=== PATIENT | male | born 1975 | race Caucasian/White ===

== ENCOUNTER 2020-12-11 10:59 | Inpatient (IN) | payer BC ==
[2020-12-11 12:27] VITALS: BMI 29.9
[2020-12-11] MEDS ORDERED: MAGNESIUM CITRATE 300 ML BOTTLE PO PRN (12:54)
[2020-12-11] MEDS ORDERED: IBUPROFEN 400 MG TABLET (FP) PO PRN (12:54)
[2020-12-11] MEDS ORDERED: BISMUTH SUBSALICYLATE 524 MG/30 ML UD PO PRN (12:54)
[2020-12-11] MEDS ORDERED: NICOTINE POLACRILEX 2 MG GUM BUC PRN (12:54)
[2020-12-11] MEDS ORDERED: ACETAMINOPHEN 325 MG TABLET (FP) PO PRN ×2 (12:54)
[2020-12-11] MEDS ORDERED: ONDANSETRON *ODT* 4 MG TABLET SL PRN (12:54)
[2020-12-11] MEDS ORDERED: MAGNESIUM HYDROX 2400MG/30ML ORAL SUSPENSION 30 ML CUP PO PRN (12:54)
[2020-12-11] MEDS ORDERED: MENTHOL/PHENOL 1 EACH UD MM PRN (12:54)
[2020-12-11] MEDS ORDERED: MAG HYDROX/AL HYDROX/SIMETH 30 ML UNIT-DOSE CUP PO PRN (12:54)
[2020-12-11] MEDS: NICOTINE 21 MG/24 HOURS TOPICAL PATCH TD SCH (14:12)
[2020-12-11] MEDS: PRENATAL VITAMINS W/ FOLIC ACID TABLET (FP) PO SCH (14:12)
[2020-12-11] MEDS: hydrOXYzine PAMOATE 25 MG CAPSULE (FP) PO SCH ×3 (14:13→22:07)
[2020-12-11] MEDS: chlordiazePOXIDE HCL 25 MG CAPSULE PO PRN (14:13)
[2020-12-11] MEDS: chlordiazePOXIDE HCL 25 MG CAPSULE PO SCH ×2 (17:31→22:07)
[2020-12-11] MEDS: THIAMINE HCL 100 MG TABLET (FP) PO SCH (22:06)
[2020-12-11] MEDS: MELATONIN 5 MG TABLETS PO SCH (22:07)
[2020-12-11] MEDS: METHOCARBAMOL 500 MG TABLET PO PRN (22:09)
[2020-12-12] MEDS: chlordiazePOXIDE HCL 25 MG CAPSULE PO SCH ×4 (06:34→22:05)
[2020-12-12] MEDS: hydrOXYzine PAMOATE 25 MG CAPSULE (FP) PO SCH ×5 (06:34→22:05)
[2020-12-12] MEDS: PRENATAL VITAMINS W/ FOLIC ACID TABLET (FP) PO SCH (10:35)
[2020-12-12] MEDS: NICOTINE 21 MG/24 HOURS TOPICAL PATCH TD SCH (10:35)
[2020-12-12 12:19] LABS: CALCIUM 9.1 mg/dL (8.5-10.1)
[2020-12-12 12:20] LABS: BLOOD UREA NITROGEN 9.7 mg/dL (7-18)
[2020-12-12 12:23] LABS: CREATININE 0.9 mg/dL (0.55-1.3); HEMATOCRIT 44.1 % (35.4-49); HEMOGLOBIN 15.9 GM/dL (11.7-16.9); MCH 32.7 pg (25.7-33.7); MCHC 36.1 g/dl (32.0-35.9); MEAN CELL VOLUME 90.5 fl (80-96); PLATELET COUNT 259 K/MM3 (134-434); RBC 4.87 M/mm3 (4.00-5.60); RDW 13.5 % (11.9-15.9); WHITE BLOOD COUNT 4.8 K/mm3 (4.0-10.0)
[2020-12-12 12:24] LABS: TOT PROT 7.6 g/dl (6.4-8.2)
[2020-12-12] MEDS: chlordiazePOXIDE HCL 25 MG CAPSULE PO PRN (13:49)
[2020-12-12 19:48] LABS: URINE APPEARANCE CLOUDY; URINE BILIRUBIN NEGATIVE (NEGATIVE); URINE COLOR YELLOW; URINE GLUCOSE (UA) TRACE (NEGATIVE); URINE KETONE NEGATIVE (NEGATIVE); URINE LEUK ESTERASE NEGATIVE (NEGATIVE); URINE NITRITE NEGATIVE (NEGATIVE); URINE PROTEIN NEGATIVE (NEGATIVE); URINE UROBILINOGEN 0.2 mg/dL (0.2-1.0)
[2020-12-12] MEDS: THIAMINE HCL 100 MG TABLET (FP) PO SCH (22:05)
[2020-12-12] MEDS: MELATONIN 5 MG TABLETS PO SCH (22:05)
[2020-12-12] MEDS: METHOCARBAMOL 500 MG TABLET PO PRN (22:05)
[2020-12-13] MEDS: chlordiazePOXIDE HCL 25 MG CAPSULE PO SCH ×4 (05:56→22:06)
[2020-12-13] MEDS: hydrOXYzine PAMOATE 25 MG CAPSULE (FP) PO SCH (05:56)
[2020-12-13] MEDS: NICOTINE 21 MG/24 HOURS TOPICAL PATCH TD SCH (10:12)
[2020-12-13] MEDS: PRENATAL VITAMINS W/ FOLIC ACID TABLET (FP) PO SCH (10:12)
[2020-12-13] MEDS: hydrOXYzine PAMOATE 25 MG CAPSULE (FP) PO PRN ×2 (17:41→22:09)
[2020-12-13] MEDS: chlordiazePOXIDE HCL 25 MG CAPSULE PO PRN (19:38)
[2020-12-13] MEDS: THIAMINE HCL 100 MG TABLET (FP) PO SCH (22:06)
[2020-12-13] MEDS: MELATONIN 5 MG TABLETS PO SCH (22:06)
[2020-12-13] MEDS: METHOCARBAMOL 500 MG TABLET PO PRN (22:08)
[2020-12-14] MEDS ORDERED: chlordiazePOXIDE HCL 10 MG CAPSULE PO PRN
[2020-12-14] MEDS: chlordiazePOXIDE HCL 10 MG CAPSULE PO SCH ×4 (06:08→22:09)
[2020-12-14] MEDS: hydrOXYzine PAMOATE 25 MG CAPSULE (FP) PO PRN ×4 (06:09→19:07)
[2020-12-14] MEDS: METHOCARBAMOL 500 MG TABLET PO PRN ×2 (06:09→22:11)
[2020-12-14] MEDS: NICOTINE 21 MG/24 HOURS TOPICAL PATCH TD SCH (10:03)
[2020-12-14] MEDS: PRENATAL VITAMINS W/ FOLIC ACID TABLET (FP) PO SCH (10:03)
[2020-12-14] MEDS: MELATONIN 5 MG TABLETS PO SCH (22:09)
[2020-12-14] MEDS: THIAMINE HCL 100 MG TABLET (FP) PO SCH (22:09)
[2020-12-15] MEDS ORDERED: chlordiazePOXIDE HCL 10 MG CAPSULE PO SCH (05:00)
[2020-12-15] MEDS ORDERED: chlordiazePOXIDE HCL 10 MG CAPSULE PO ONE (05:00)
[2020-12-15 06:07] LABS: SARS-CoV-2 NAA Not Detected (Not Detected)
[2020-12-15 08:46] VITALS: BP 126/73; PULSE 64; TEMP 98.1
[2020-12-16] MEDS ORDERED: chlordiazePOXIDE HCL 10 MG CAPSULE PO ONE (05:00)
== END 2020-12-15 09:35 | disposition home or self-care (01) | DRG 775 ==
LOC: YASAS 10:59 → Y3N 12:55
PROVIDERS: ADMIT Allergy & Immunology; ATTEND Allergy & Immunology
PROC: HZ2ZZZZ Detoxification Services for Substance Abuse Treatment (ICD-10-PCS; principal; 2020-12-11)
DX: F10.230 Alcohol dependence with withdrawal, uncomplicated (principal); F17.210 Nicotine dependence, cigarettes, uncomplicated; G40.89 Other seizures; R73.9 Hyperglycemia, unspecified
CPT/HCPCS: 36415; 80053; 81003; 83036; 85027; 86780; 93005; 93010; C9803; U0003; U0005

== ENCOUNTER 2021-01-13 12:02 | Inpatient (IN) | payer BC ==
[2021-01-13 13:11] VITALS: BMI 27.8
[2021-01-13] MEDS ORDERED: ONDANSETRON *ODT* 4 MG TABLET SL PRN (13:40)
[2021-01-13] MEDS ORDERED: diazePAM 5 MG TABLET PO ONE (13:40)
[2021-01-13] MEDS ORDERED: NICOTINE POLACRILEX 2 MG GUM BUC PRN (13:40)
[2021-01-13] MEDS ORDERED: MAGNESIUM HYDROX 2400MG/30ML ORAL SUSPENSION 30 ML CUP PO PRN (13:40)
[2021-01-13] MEDS ORDERED: BISMUTH SUBSALICYLATE 524 MG/30 ML PO PRN (13:40)
[2021-01-13] MEDS ORDERED: MENTHOL/PHENOL 1 EACH UD MM PRN (13:40)
[2021-01-13] MEDS ORDERED: MAG HYDROX/AL HYDROX/SIMETH 30 ML UNIT-DOSE CUP PO PRN (13:40)
[2021-01-13] MEDS ORDERED: MAGNESIUM CITRATE 300 ML BOTTLE PO PRN (13:40)
[2021-01-13] MEDS ORDERED: ACETAMINOPHEN 325 MG TABLET (FP) PO PRN ×2 (13:40)
[2021-01-13] MEDS: NICOTINE 14 MG/24 HOURS TOPICAL PATCH TD SCH (14:21)
[2021-01-13] MEDS: hydrOXYzine PAMOATE 25 MG CAPSULE (FP) PO SCH ×3 (14:23→21:54)
[2021-01-13] MEDS: PRENATAL VITAMINS W/ FOLIC ACID TABLET (FP) PO SCH (14:25)
[2021-01-13 15:29] LABS: ALBUMIN 4.4 g/dl (3.4-5.0); BLOOD UREA NITROGEN 6.8 mg/dL (7-18); CALCIUM 8.7 mg/dL (8.5-10.1)
[2021-01-13 15:31] LABS: HEMATOCRIT 41.4 % (35.4-49); HEMOGLOBIN 15.1 GM/dL (11.7-16.9); MCH 32.4 pg (25.7-33.7); MCHC 36.5 g/dl (32.0-35.9); MEAN CELL VOLUME 88.7 fl (80-96); MEAN PLT VOLUME 6.7 fl (7.5-11.1); PLATELET COUNT 279 K/MM3 (134-434); RBC 4.66 M/mm3 (4.00-5.60); RDW 13.9 % (11.9-15.9); WHITE BLOOD COUNT 4.9 K/mm3 (4.0-10.0)
[2021-01-13 15:32] LABS: BILIRUBIN,TOTAL 0.6 mg/dL (0.2-1); CREATININE 0.9 mg/dL (0.55-1.3)
[2021-01-13] MEDS: diazePAM 5 MG TABLET PO SCH ×2 (17:20→22:09)
[2021-01-13] MEDS: diazePAM 5 MG TABLET PO PRN (20:07)
[2021-01-13] MEDS: THIAMINE HCL 100 MG TABLET (FP) PO SCH (21:54)
[2021-01-13] MEDS: MELATONIN 5 MG TABLETS PO SCH (21:54)
[2021-01-14] MEDS: hydrOXYzine PAMOATE 25 MG CAPSULE (FP) PO SCH ×2 (05:53→10:16)
[2021-01-14] MEDS: diazePAM 5 MG TABLET PO SCH ×4 (05:53→22:05)
[2021-01-14] MEDS: diazePAM 5 MG TABLET PO PRN ×3 (07:17→19:32)
[2021-01-14] MEDS: PRENATAL VITAMINS W/ FOLIC ACID TABLET (FP) PO SCH (10:16)
[2021-01-14] MEDS: NICOTINE 14 MG/24 HOURS TOPICAL PATCH TD SCH (10:16)
[2021-01-14] MEDS: hydrOXYzine PAMOATE 25 MG CAPSULE (FP) PO PRN ×2 (13:04→17:13)
[2021-01-14] MEDS: METHOCARBAMOL 500 MG TABLET PO PRN (17:13)
[2021-01-14] MEDS: MELATONIN 5 MG TABLETS PO SCH (22:04)
[2021-01-14] MEDS: THIAMINE HCL 100 MG TABLET (FP) PO SCH (22:04)
[2021-01-15] MEDS: diazePAM 5 MG TABLET PO PRN ×4 (05:31→18:57)
[2021-01-15] MEDS: METHOCARBAMOL 500 MG TABLET PO PRN ×3 (05:31→17:19)
[2021-01-15] MEDS: diazePAM 5 MG TABLET PO SCH ×3 (05:32→22:13)
[2021-01-15] MEDS: hydrOXYzine PAMOATE 25 MG CAPSULE (FP) PO PRN ×2 (10:39→14:34)
[2021-01-15] MEDS: NICOTINE 14 MG/24 HOURS TOPICAL PATCH TD SCH (10:39)
[2021-01-15] MEDS: PRENATAL VITAMINS W/ FOLIC ACID TABLET (FP) PO SCH (10:39)
[2021-01-15] MEDS ORDERED: MASKS NR ONE (17:14)
[2021-01-15] MEDS: THIAMINE HCL 100 MG TABLET (FP) PO SCH (22:10)
[2021-01-15] MEDS: MELATONIN 5 MG TABLETS PO SCH (22:11)
[2021-01-16] MEDS: diazePAM 5 MG TABLET PO PRN ×2 (05:26→10:12)
[2021-01-16] MEDS: METHOCARBAMOL 500 MG TABLET PO PRN ×3 (05:26→22:12)
[2021-01-16] MEDS: diazePAM 5 MG TABLET PO SCH ×2 (05:43→18:02)
[2021-01-16] MEDS: hydrOXYzine PAMOATE 25 MG CAPSULE (FP) PO PRN ×2 (10:14→18:02)
[2021-01-16] MEDS: PRENATAL VITAMINS W/ FOLIC ACID TABLET (FP) PO SCH (10:15)
[2021-01-16] MEDS: NICOTINE 14 MG/24 HOURS TOPICAL PATCH TD SCH (10:17)
[2021-01-16 21:40] VITALS: BP 132/80; PULSE 89; TEMP 96.9
[2021-01-16] MEDS: THIAMINE HCL 100 MG TABLET (FP) PO SCH (22:11)
[2021-01-16] MEDS: MELATONIN 5 MG TABLETS PO SCH (22:11)
[2021-01-17] MEDS ORDERED: diazePAM 5 MG TABLET PO ONE (06:00)
[2021-01-17] MEDS: NICOTINE 14 MG/24 HOURS TOPICAL PATCH TD SCH (10:55)
[2021-01-17] MEDS: PRENATAL VITAMINS W/ FOLIC ACID TABLET (FP) PO SCH (10:55)
== END 2021-01-17 09:25 | disposition home or self-care (01) | DRG 775 ==
LOC: YASAS 12:02 → Y3N 13:37
PROVIDERS: ADMIT Allergy & Immunology; ATTEND Allergy & Immunology
PROC: HZ2ZZZZ Detoxification Services for Substance Abuse Treatment (ICD-10-PCS; principal; 2021-01-13)
DX: F10.230 Alcohol dependence with withdrawal, uncomplicated (principal); F12.20 Cannabis dependence, uncomplicated; F17.210 Nicotine dependence, cigarettes, uncomplicated; G40.89 Other seizures; Z86.16 Personal history of COVID-19; Z85.47 Personal history of malignant neoplasm of testis; Z90.79 Acquired absence of other genital organ(s)
CPT/HCPCS: 36415; 80053; 85027; 86780; C9803; U0003; U0005

== ENCOUNTER 2021-04-17 18:16 | Inpatient (IN) | payer BC ==
[2021-04-17 18:50] VITALS: BMI 27.3
[2021-04-17] MEDS ORDERED: BISMUTH SUBSALICYLATE 524 MG/30 ML PO PRN (20:34)
[2021-04-17] MEDS ORDERED: ONDANSETRON *ODT* 4 MG TABLET SL PRN (20:34)
[2021-04-17] MEDS ORDERED: MAG HYDROX/AL HYDROX/SIMETH 30 ML UNIT-DOSE CUP PO PRN (20:34)
[2021-04-17] MEDS ORDERED: MAGNESIUM HYDROX 2400MG/30ML ORAL SUSPENSION 30 ML CUP PO PRN (20:34)
[2021-04-17] MEDS ORDERED: MAGNESIUM CITRATE 300 ML BOTTLE PO PRN (20:34)
[2021-04-17] MEDS ORDERED: ACETAMINOPHEN 325 MG TABLET (FP) PO PRN ×2 (20:34)
[2021-04-17] MEDS ORDERED: IBUPROFEN 400 MG TABLET (FP) PO PRN (20:34)
[2021-04-17] MEDS ORDERED: MENTHOL/PHENOL 1 EACH UD MM PRN (20:34)
[2021-04-17] MEDS ORDERED: NICOTINE POLACRILEX 2 MG GUM BUC PRN (20:34)
[2021-04-17] MEDS: MELATONIN 5 MG TABLETS PO SCH (23:08)
[2021-04-17] MEDS: hydrOXYzine PAMOATE 25 MG CAPSULE (FP) PO PRN (23:08)
[2021-04-17] MEDS: METHOCARBAMOL 500 MG TABLET PO PRN (23:08)
[2021-04-17] MEDS: diazePAM 5 MG TABLET PO SCH (23:08)
[2021-04-17] MEDS: THIAMINE HCL 100 MG TABLET (FP) PO SCH (23:10)
[2021-04-18] MEDS: diazePAM 5 MG TABLET PO SCH ×4 (05:52→22:03)
[2021-04-18] MEDS: hydrOXYzine PAMOATE 25 MG CAPSULE (FP) PO PRN ×4 (05:53→19:57)
[2021-04-18] MEDS: NICOTINE 14 MG/24 HOURS TOPICAL PATCH TD SCH (10:21)
[2021-04-18] MEDS: PRENATAL VITAMINS W/ FOLIC ACID TABLET (FP) PO SCH (10:21)
[2021-04-18] MEDS: METHOCARBAMOL 500 MG TABLET PO PRN ×2 (11:41→17:53)
[2021-04-18] MEDS: diazePAM 5 MG TABLET PO PRN ×2 (14:35→19:57)
[2021-04-18 16:17] LABS: HEMATOCRIT 40.7 % (35.4-49); HEMOGLOBIN 14.7 GM/dL (11.7-16.9); MCH 33.1 pg (25.7-33.7); MEAN CELL VOLUME 91.9 fl (80-96); MEAN PLT VOLUME 6.9 fl (7.5-11.1); PLATELET COUNT 322 10^3/uL (134-434); RBC 4.43 M/mm3 (4.00-5.60); RDW 13.2 % (11.9-15.9); WHITE BLOOD COUNT 4.9 K/mm3 (4.0-10.0)
[2021-04-18 16:36] LABS: ALBUMIN 3.6 g/dl (3.4-5.0); BLOOD UREA NITROGEN 8.7 mg/dL (7-18)
[2021-04-18 16:38] LABS: CREATININE 0.9 mg/dL (0.55-1.3)
[2021-04-18 16:40] LABS: BILIRUBIN,TOTAL 0.8 mg/dL (0.2-1); TOT PROT 7.4 g/dl (6.4-8.2)
[2021-04-18] MEDS: MELATONIN 5 MG TABLETS PO SCH (22:02)
[2021-04-18] MEDS: THIAMINE HCL 100 MG TABLET (FP) PO SCH (22:02)
[2021-04-19] MEDS: diazePAM 5 MG TABLET PO SCH ×3 (06:23→22:02)
[2021-04-19] MEDS: hydrOXYzine PAMOATE 25 MG CAPSULE (FP) PO PRN ×5 (06:24→22:03)
[2021-04-19] MEDS: METHOCARBAMOL 500 MG TABLET PO PRN ×3 (06:24→17:45)
[2021-04-19] MEDS: NICOTINE 14 MG/24 HOURS TOPICAL PATCH TD SCH (10:23)
[2021-04-19] MEDS: PRENATAL VITAMINS W/ FOLIC ACID TABLET (FP) PO SCH (10:23)
[2021-04-19] MEDS: diazePAM 5 MG TABLET PO PRN ×3 (10:25→19:34)
[2021-04-19] MEDS: MELATONIN 5 MG TABLETS PO SCH (22:02)
[2021-04-19] MEDS: THIAMINE HCL 100 MG TABLET (FP) PO SCH (22:02)
[2021-04-20] MEDS: diazePAM 5 MG TABLET PO SCH ×2 (06:32→17:38)
[2021-04-20] MEDS: METHOCARBAMOL 500 MG TABLET PO PRN ×3 (06:32→19:45)
[2021-04-20] MEDS: hydrOXYzine PAMOATE 25 MG CAPSULE (FP) PO PRN ×3 (06:33→17:40)
[2021-04-20] MEDS: diazePAM 5 MG TABLET PO PRN ×3 (09:12→19:45)
[2021-04-20] MEDS: NICOTINE 14 MG/24 HOURS TOPICAL PATCH TD SCH (10:24)
[2021-04-20] MEDS: PRENATAL VITAMINS W/ FOLIC ACID TABLET (FP) PO SCH (10:24)
[2021-04-20 21:32] VITALS: BP 139/83; PULSE 77; TEMP 96.8
[2021-04-20] MEDS: THIAMINE HCL 100 MG TABLET (FP) PO SCH (22:12)
[2021-04-20] MEDS: MELATONIN 5 MG TABLETS PO SCH (22:12)
[2021-04-21] MEDS ORDERED: diazePAM 5 MG TABLET PO ONE (06:00)
[2021-04-21] MEDS: METHOCARBAMOL 500 MG TABLET PO PRN (06:10)
[2021-04-21] MEDS: hydrOXYzine PAMOATE 25 MG CAPSULE (FP) PO PRN (06:10)
== END 2021-04-21 09:11 | disposition home or self-care (01) | DRG 775 ==
LOC: YASAS 18:16 → Y3N 21:39
PROVIDERS: ADMIT Allergy & Immunology; ATTEND Allergy & Immunology
PROC: HZ2ZZZZ Detoxification Services for Substance Abuse Treatment (ICD-10-PCS; principal; 2021-04-17)
DX: F10.230 Alcohol dependence with withdrawal, uncomplicated (principal); F12.10 Cannabis abuse, uncomplicated; F17.210 Nicotine dependence, cigarettes, uncomplicated; Z86.59 Personal history of other mental and behavioral disorders; Z85.47 Personal history of malignant neoplasm of testis; Z90.79 Acquired absence of other genital organ(s); Z56.0 Unemployment, unspecified; Z59.0 Homelessness
CPT/HCPCS: 36415; 80053; 85027; 86780; 93005; 93010; C9803; U0003; U0005

== ENCOUNTER 2021-08-06 09:06 | Inpatient (IN) | payer BC ==
[2021-08-06 09:34] VITALS: BMI 28.1
[2021-08-06] MEDS ORDERED: BISMUTH SUBSALICYLATE 524 MG/30 ML PO PRN (10:22)
[2021-08-06] MEDS ORDERED: ACETAMINOPHEN 325 MG TABLET (FP) PO PRN ×2 (10:22)
[2021-08-06] MEDS ORDERED: NICOTINE 10 MG CARTRIDGE (INHALER) IH PRN (10:22)
[2021-08-06] MEDS ORDERED: IBUPROFEN 400 MG TABLET (FP) PO PRN (10:22)
[2021-08-06] MEDS ORDERED: MAGNESIUM HYDROX 2400MG/30ML ORAL SUSPENSION 30 ML CUP PO PRN (10:22)
[2021-08-06] MEDS ORDERED: chlordiazePOXIDE HCL 25 MG CAPSULE PO ONE (10:22)
[2021-08-06] MEDS ORDERED: MAG HYDROX/AL HYDROX/SIMETH 30 ML UNIT-DOSE CUP PO PRN (10:22)
[2021-08-06] MEDS ORDERED: MENTHOL/PHENOL 1 EACH UD MM PRN (10:22)
[2021-08-06] MEDS ORDERED: MAGNESIUM CITRATE 300 ML BOTTLE PO PRN (10:22)
[2021-08-06] MEDS ORDERED: ONDANSETRON *ODT* 4 MG TABLET SL PRN (10:22)
[2021-08-06] MEDS: hydrOXYzine PAMOATE 25 MG CAPSULE (FP) PO SCH ×3 (13:55→22:24)
[2021-08-06] MEDS: chlordiazePOXIDE HCL 25 MG CAPSULE PO PRN ×2 (14:41→19:04)
[2021-08-06] MEDS: chlordiazePOXIDE HCL 25 MG CAPSULE PO SCH ×2 (17:16→22:24)
[2021-08-06] MEDS: MELATONIN 5 MG TABLETS PO SCH (22:25)
[2021-08-06] MEDS: THIAMINE HCL 100 MG TABLET (FP) PO SCH (22:25)
[2021-08-06] MEDS: METHOCARBAMOL 500 MG TABLET PO PRN (22:27)
[2021-08-07] MEDS: chlordiazePOXIDE HCL 25 MG CAPSULE PO SCH ×4 (05:28→22:03)
[2021-08-07] MEDS: hydrOXYzine PAMOATE 25 MG CAPSULE (FP) PO SCH ×5 (05:28→22:04)
[2021-08-07] MEDS: METHOCARBAMOL 500 MG TABLET PO PRN ×2 (08:26→22:04)
[2021-08-07] MEDS: chlordiazePOXIDE HCL 25 MG CAPSULE PO PRN ×3 (08:28→19:59)
[2021-08-07] MEDS ORDERED: PRENATAL VITAMINS W/ FOLIC ACID TABLET (FP) PO SCH (10:00)
[2021-08-07] MEDS: MELATONIN 5 MG TABLETS PO SCH (22:05)
[2021-08-07] MEDS: THIAMINE HCL 100 MG TABLET (FP) PO SCH (22:05)
[2021-08-08] MEDS ORDERED: chlordiazePOXIDE HCL 25 MG CAPSULE PO SCH (05:00)
[2021-08-08] MEDS: METHOCARBAMOL 500 MG TABLET PO PRN (05:19)
[2021-08-08] MEDS: hydrOXYzine PAMOATE 25 MG CAPSULE (FP) PO SCH (05:19)
[2021-08-08 08:54] VITALS: BP 112/67; PULSE 97; TEMP 98
[2021-08-09] MEDS ORDERED: chlordiazePOXIDE HCL 10 MG CAPSULE PO PRN
[2021-08-09] MEDS ORDERED: chlordiazePOXIDE HCL 10 MG CAPSULE PO SCH (05:00)
[2021-08-10] MEDS ORDERED: chlordiazePOXIDE HCL 10 MG CAPSULE PO SCH (05:00)
[2021-08-11] MEDS ORDERED: chlordiazePOXIDE HCL 10 MG CAPSULE PO ONE (05:00)
== END 2021-08-08 08:51 | disposition left against medical advice (07) | DRG 770 ==
LOC: YASAS 09:06 → Y3N 10:27
PROVIDERS: ADMIT Allergy & Immunology; ATTEND Allergy & Immunology
PROC: HZ2ZZZZ Detoxification Services for Substance Abuse Treatment (ICD-10-PCS; principal; 2021-08-06)
DX: F10.230 Alcohol dependence with withdrawal, uncomplicated (principal); F14.10 Cocaine abuse, uncomplicated; F12.20 Cannabis dependence, uncomplicated; F17.210 Nicotine dependence, cigarettes, uncomplicated; F41.9 Anxiety disorder, unspecified; F90.1 Attention-deficit hyperactivity disorder, predominantly hyperactive type; M17.11 Unilateral primary osteoarthritis, right knee; Z85.47 Personal history of malignant neoplasm of testis; Z90.79 Acquired absence of other genital organ(s); Z86.69 Personal history of other diseases of the nervous system and sense organs; Z59.01 Sheltered homelessness
CPT/HCPCS: C9803; U0003; U0005

== ENCOUNTER 2021-10-18 12:13 | Inpatient (IN) | payer BC ==
[2021-10-18] MEDS ORDERED: MAG HYDROX/AL HYDROX/SIMETH 30 ML UNIT-DOSE CUP PO PRN (13:07)
[2021-10-18] MEDS ORDERED: MAGNESIUM CITRATE 300 ML BOTTLE PO PRN (13:07)
[2021-10-18] MEDS ORDERED: LOPERAMIDE HCL 2 MG CAPSULE PO PRN (13:07)
[2021-10-18] MEDS ORDERED: MENTHOL/PHENOL 1 EACH UD MM PRN (13:07)
[2021-10-18] MEDS ORDERED: BISMUTH SUBSALICYLATE 524 MG/30 ML PO PRN (13:07)
[2021-10-18] MEDS ORDERED: ACETAMINOPHEN 325 MG TABLET (FP) PO PRN ×2 (13:07)
[2021-10-18] MEDS ORDERED: IBUPROFEN 400 MG TABLET (FP) PO PRN (13:07)
[2021-10-18] MEDS ORDERED: ONDANSETRON *ODT* 4 MG TABLET SL PRN (13:07)
[2021-10-18] MEDS ORDERED: MAGNESIUM HYDROX 2400MG/30ML ORAL SUSPENSION 30 ML CUP PO PRN (13:07)
[2021-10-18 13:59] VITALS: BMI 29.3
[2021-10-18] MEDS: diazePAM 5 MG TABLET PO PRN ×2 (15:02→19:56)
[2021-10-18] MEDS: METHOCARBAMOL 500 MG TABLET PO PRN ×2 (15:02→22:18)
[2021-10-18] MEDS: hydrOXYzine PAMOATE 25 MG CAPSULE (FP) PO SCH ×3 (15:02→22:17)
[2021-10-18] MEDS: PRENATAL VITAMINS W/ FOLIC ACID TABLET (FP) PO SCH (15:06)
[2021-10-18] MEDS: diazePAM 5 MG TABLET PO SCH ×3 (15:06→22:17)
[2021-10-18 17:45] LABS: HEMATOCRIT 43.9 % (35.4-49); HEMOGLOBIN 15.2 GM/dL (11.7-16.9); MCH 31.6 pg (25.7-33.7); MCHC 34.6 g/dl (32.0-35.9); MEAN CELL VOLUME 91.2 fl (80-96); MEAN PLT VOLUME 6.9 fl (7.5-11.1); PLATELET COUNT 376 10^3/uL (134-434); RBC 4.81 M/mm3 (4.00-5.60); RDW 12.9 % (11.9-15.9); WHITE BLOOD COUNT 5.2 K/mm3 (4.0-10.0)
[2021-10-18 17:54] LABS: ALBUMIN 4.2 g/dl (3.4-5.0); BLOOD UREA NITROGEN 11.2 mg/dL (7-18)
[2021-10-18 17:59] LABS: BILIRUBIN,TOTAL 0.8 mg/dL (0.2-1)
[2021-10-18] MEDS ORDERED: guaiFENesin/D-METHORPHAN HB 10 ML UNIT-DOSE CUPS PO PRN (19:29)
[2021-10-18] MEDS ORDERED: INSULIN (NOVOLOG) ASPART 100 UNITS/ML 10ML VIAL ONE (22:16)
[2021-10-18] MEDS: MELATONIN 5 MG TABLETS PO SCH (22:17)
[2021-10-18] MEDS: LISINOPRIL 10 MG TABLET PO SCH (22:17)
[2021-10-18] MEDS: THIAMINE HCL 100 MG TABLET (FP) PO SCH (22:17)
[2021-10-18] MEDS: INSULIN SLIDING SCALE (NOVOLOG) 1 VIAL SQ SCH (23:14)
[2021-10-19] MEDS: diazePAM 5 MG TABLET PO PRN ×4 (00:03→19:54)
[2021-10-19] MEDS: METHOCARBAMOL 500 MG TABLET PO PRN ×3 (05:40→22:41)
[2021-10-19] MEDS: hydrOXYzine PAMOATE 25 MG CAPSULE (FP) PO SCH ×5 (05:40→22:41)
[2021-10-19] MEDS: diazePAM 5 MG TABLET PO SCH ×4 (05:40→22:42)
[2021-10-19] MEDS: INSULIN SLIDING SCALE (NOVOLOG) 1 VIAL SQ SCH ×4 (07:10→22:39)
[2021-10-19] MEDS: PRENATAL VITAMINS W/ FOLIC ACID TABLET (FP) PO SCH (10:12)
[2021-10-19] MEDS: LISINOPRIL 10 MG TABLET PO SCH (10:12)
[2021-10-19] MEDS ORDERED: guaiFENesin 200 MG/10 ML 10 ML UNIT-DOSE CUPS PO PRN (11:30)
[2021-10-19] MEDS ORDERED: INSULIN (NOVOLOG) ASPART 100 UNITS/ML 10ML VIAL ONE ×2 (11:53→16:29)
[2021-10-19] MEDS: MELATONIN 5 MG TABLETS PO SCH (22:41)
[2021-10-19] MEDS: THIAMINE HCL 100 MG TABLET (FP) PO SCH (22:41)
[2021-10-20] MEDS: hydrOXYzine PAMOATE 25 MG CAPSULE (FP) PO SCH ×5 (05:55→23:22)
[2021-10-20] MEDS: diazePAM 5 MG TABLET PO SCH ×3 (05:55→23:22)
[2021-10-20] MEDS: INSULIN SLIDING SCALE (NOVOLOG) 1 VIAL SQ SCH ×4 (06:26→22:40)
[2021-10-20] MEDS: diazePAM 5 MG TABLET PO PRN ×2 (08:15→17:57)
[2021-10-20] MEDS: LISINOPRIL 10 MG TABLET PO SCH (10:10)
[2021-10-20] MEDS: PRENATAL VITAMINS W/ FOLIC ACID TABLET (FP) PO SCH (10:10)
[2021-10-20] MEDS: METHOCARBAMOL 500 MG TABLET PO PRN ×2 (10:11→23:29)
[2021-10-20] MEDS ORDERED: INSULIN (NOVOLOG) ASPART 100 UNITS/ML 10ML VIAL ONE ×3 (12:19→18:27)
[2021-10-20 14:08] LABS: SARS-CoV-2 NAA Not Detected (Not Detected)
[2021-10-20] MEDS: THIAMINE HCL 100 MG TABLET (FP) PO SCH (23:22)
[2021-10-20] MEDS: MELATONIN 5 MG TABLETS PO SCH (23:22)
[2021-10-21] MEDS: hydrOXYzine PAMOATE 25 MG CAPSULE (FP) PO SCH ×5 (06:07→22:20)
[2021-10-21] MEDS: diazePAM 5 MG TABLET PO SCH ×2 (06:07→17:31)
[2021-10-21] MEDS: METHOCARBAMOL 500 MG TABLET PO PRN ×3 (06:09→22:21)
[2021-10-21] MEDS: INSULIN SLIDING SCALE (NOVOLOG) 1 VIAL SQ SCH ×4 (06:10→22:19)
[2021-10-21] MEDS: diazePAM 5 MG TABLET PO PRN (08:33)
[2021-10-21] MEDS: PRENATAL VITAMINS W/ FOLIC ACID TABLET (FP) PO SCH (10:17)
[2021-10-21] MEDS: LISINOPRIL 10 MG TABLET PO SCH (10:17)
[2021-10-21] MEDS ORDERED: INSULIN (NOVOLOG) ASPART 100 UNITS/ML 10ML VIAL ONE (17:03)
[2021-10-21] MEDS: THIAMINE HCL 100 MG TABLET (FP) PO SCH (22:21)
[2021-10-21] MEDS: MELATONIN 5 MG TABLETS PO SCH (23:38)
[2021-10-22] MEDS ORDERED: diazePAM 5 MG TABLET PO ONE (06:00)
[2021-10-22] MEDS: hydrOXYzine PAMOATE 25 MG CAPSULE (FP) PO SCH (07:29)
[2021-10-22] MEDS: INSULIN SLIDING SCALE (NOVOLOG) 1 VIAL SQ SCH (07:30)
[2021-10-22 09:52] VITALS: BP 139/78; PULSE 93; TEMP 97.8
== END 2021-10-22 09:52 | disposition home or self-care (01) | DRG 774 ==
LOC: YASAS 12:13 → Y6N 14:37
PROVIDERS: ADMIT Allergy & Immunology; ATTEND Allergy & Immunology
PROC: HZ2ZZZZ Detoxification Services for Substance Abuse Treatment (ICD-10-PCS; principal; 2021-10-18)
DX: F10.230 Alcohol dependence with withdrawal, uncomplicated (principal); F14.10 Cocaine abuse, uncomplicated; F12.20 Cannabis dependence, uncomplicated; F17.210 Nicotine dependence, cigarettes, uncomplicated; F19.280 Other psychoactive substance dependence with psychoactive substance-induced anxiety disorder; F90.9 Attention-deficit hyperactivity disorder, unspecified type; M17.11 Unilateral primary osteoarthritis, right knee; R73.9 Hyperglycemia, unspecified; W20.8XXA Other cause of strike by thrown, projected or falling object, initial encounter; Y92.238 Other place in hospital as the place of occurrence of the external cause; Z85.47 Personal history of malignant neoplasm of testis; Z59.01 Sheltered homelessness; Z56.0 Unemployment, unspecified
CPT/HCPCS: 36415; 80053; 82962; 83036; 85027; 86780; 87811; C9803-CS; U0003; U0005

== ENCOUNTER 2022-03-02 09:29 | Inpatient (IN) | payer BC ==
[2022-03-02 10:30] VITALS: BMI 29.6
[2022-03-02] MEDS ORDERED: BISMUTH SUBSALICYLATE 262 MG/15 ML BTL PO PRN (12:19)
[2022-03-02] MEDS ORDERED: IBUPROFEN 600 MG TABLET (FP) PO PRN (12:19)
[2022-03-02] MEDS ORDERED: ONDANSETRON *ODT* 4 MG TABLET SL PRN (12:19)
[2022-03-02] MEDS ORDERED: MAG HYDROX/AL HYDROX/SIMETH 30 ML UNIT-DOSE CUP PO PRN (12:19)
[2022-03-02] MEDS ORDERED: LOPERAMIDE HCL 2 MG CAPSULE PO PRN (12:19)
[2022-03-02] MEDS ORDERED: ACETAMINOPHEN 325 MG TABLET (FP) PO PRN ×2 (12:19)
[2022-03-02] MEDS ORDERED: DICYCLOMINE HCL 10 MG CAPSULE PO PRN (12:19)
[2022-03-02] MEDS ORDERED: IBUPROFEN 400 MG TABLET (FP) PO PRN (12:19)
[2022-03-02] MEDS ORDERED: MAGNESIUM HYDROX 2400MG/30ML ORAL SUSPENSION 30 ML CUP PO PRN (12:19)
[2022-03-02] MEDS ORDERED: MAGNESIUM CITRATE 300 ML BOTTLE PO PRN (12:19)
[2022-03-02] MEDS ORDERED: NICOTINE 10 MG CARTRIDGE (INHALER) IH PRN (12:19)
[2022-03-02] MEDS ORDERED: BENZOCAINE/MENTHOL (CHLORASEPTIC ) LOZENGE MM PRN (12:19)
[2022-03-02] MEDS: PRENATAL VITAMINS W/ FOLIC ACID TABLET (FP) PO SCH (17:20)
[2022-03-02] MEDS: hydrOXYzine PAMOATE 25 MG CAPSULE (FP) PO SCH ×3 (17:20→22:05)
[2022-03-02] MEDS: NICOTINE 7 MG/24 HOURS TOPICAL PATCH TD SCH (17:20)
[2022-03-02] MEDS: diazePAM 5 MG TABLET PO SCH ×2 (17:21→22:05)
[2022-03-02 18:47] LABS: HEMATOCRIT 37.5 % (35.4-49); HEMOGLOBIN 13.3 GM/dL (11.7-16.9); MCHC 35.6 g/dl (32.0-35.9); PLATELET COUNT 240 10^3/uL (134-434); RBC 4.17 M/mm3 (4.00-5.60); RDW 13.2 % (11.9-15.9)
[2022-03-02 18:52] LABS: CALCIUM 8.5 mg/dL (8.5-10.1)
[2022-03-02 18:54] LABS: ALBUMIN 3.5 g/dl (3.4-5.0); BLOOD UREA NITROGEN 8.3 mg/dL (7-18)
[2022-03-02 18:57] LABS: CREATININE 0.8 mg/dL (0.55-1.3)
[2022-03-02 18:58] LABS: BILIRUBIN,TOTAL 0.5 mg/dL (0.2-1); TOT PROT 6.7 g/dl (6.4-8.2)
[2022-03-02] MEDS: diazePAM 5 MG TABLET PO PRN (20:59)
[2022-03-02] MEDS: THIAMINE HCL 100 MG TABLET (FP) PO SCH (22:05)
[2022-03-02] MEDS: MELATONIN 5 MG TABLETS PO SCH (22:05)
[2022-03-02] MEDS: METHOCARBAMOL 500 MG TABLET PO PRN (22:07)
[2022-03-03] MEDS: diazePAM 5 MG TABLET PO PRN ×4 (03:10→19:47)
[2022-03-03] MEDS: METHOCARBAMOL 500 MG TABLET PO PRN ×3 (06:05→22:37)
[2022-03-03] MEDS: diazePAM 5 MG TABLET PO SCH ×4 (06:05→22:35)
[2022-03-03] MEDS: hydrOXYzine PAMOATE 25 MG CAPSULE (FP) PO SCH ×5 (06:06→22:35)
[2022-03-03] MEDS: NICOTINE 7 MG/24 HOURS TOPICAL PATCH TD SCH (10:19)
[2022-03-03] MEDS: PRENATAL VITAMINS W/ FOLIC ACID TABLET (FP) PO SCH (10:20)
[2022-03-03] MEDS: THIAMINE HCL 100 MG TABLET (FP) PO SCH (22:35)
[2022-03-03] MEDS: MELATONIN 5 MG TABLETS PO SCH (22:39)
[2022-03-04] MEDS: hydrOXYzine PAMOATE 25 MG CAPSULE (FP) PO SCH ×4 (05:16→17:25)
[2022-03-04] MEDS: diazePAM 5 MG TABLET PO SCH ×3 (05:17→22:09)
[2022-03-04] MEDS: METHOCARBAMOL 500 MG TABLET PO PRN ×2 (05:18→22:11)
[2022-03-04] MEDS: PRENATAL VITAMINS W/ FOLIC ACID TABLET (FP) PO SCH (10:28)
[2022-03-04] MEDS: NICOTINE 7 MG/24 HOURS TOPICAL PATCH TD SCH (10:29)
[2022-03-04] MEDS: diazePAM 5 MG TABLET PO PRN ×2 (10:31→17:25)
[2022-03-04 13:10] VITALS: RESP 18
[2022-03-04] MEDS: THIAMINE HCL 100 MG TABLET (FP) PO SCH (22:10)
[2022-03-04] MEDS: MELATONIN 5 MG TABLETS PO SCH (22:10)
[2022-03-05] MEDS: hydrOXYzine PAMOATE 25 MG CAPSULE (FP) PO SCH ×6 (05:02→22:05)
[2022-03-05] MEDS: diazePAM 5 MG TABLET PO SCH ×2 (05:51→17:47)
[2022-03-05] MEDS: METHOCARBAMOL 500 MG TABLET PO PRN ×2 (05:52→22:06)
[2022-03-05] MEDS: PRENATAL VITAMINS W/ FOLIC ACID TABLET (FP) PO SCH (10:41)
[2022-03-05] MEDS: diazePAM 5 MG TABLET PO PRN (10:41)
[2022-03-05] MEDS: NICOTINE 7 MG/24 HOURS TOPICAL PATCH TD SCH (10:42)
[2022-03-05] MEDS: MELATONIN 5 MG TABLETS PO SCH (22:05)
[2022-03-05] MEDS: THIAMINE HCL 100 MG TABLET (FP) PO SCH (22:05)
[2022-03-06] MEDS: METHOCARBAMOL 500 MG TABLET PO PRN (05:25)
[2022-03-06] MEDS: hydrOXYzine PAMOATE 25 MG CAPSULE (FP) PO SCH (05:26)
[2022-03-06] MEDS ORDERED: diazePAM 5 MG TABLET PO ONE (06:00)
[2022-03-06 08:50] VITALS: BP 155/82; PULSE 83; TEMP 97.1
== END 2022-03-06 09:25 | disposition home or self-care (01) | DRG 775 ==
LOC: SUATTDRO 09:29 → YASAS 09:29 → Y3N 15:01
PROVIDERS: ADMIT Allergy & Immunology; ATTEND Surgery
PROC: HZ2ZZZZ Detoxification Services for Substance Abuse Treatment (ICD-10-PCS; principal; 2022-03-02)
DX: F10.230 Alcohol dependence with withdrawal, uncomplicated (principal); F17.210 Nicotine dependence, cigarettes, uncomplicated; I10 Essential (primary) hypertension; M17.11 Unilateral primary osteoarthritis, right knee; E87.1 Hypo-osmolality and hyponatremia; E83.51 Hypocalcemia; R73.9 Hyperglycemia, unspecified
CPT/HCPCS: 36415; 80053; 85027; 86780; 87811; C9803-CS; U0003; U0005

== ENCOUNTER 2022-07-02 23:36 | Inpatient (IN) | payer BC ==
[2022-07-03 00:04] VITALS: BMI 28.8
[2022-07-03] MEDS ORDERED: MAG HYDROX/AL HYDROX/SIMETH 30 ML UNIT-DOSE CUP PO PRN (00:16)
[2022-07-03] MEDS ORDERED: MAGNESIUM HYDROX 2400MG/30ML ORAL SUSPENSION 30 ML CUP PO PRN (00:16)
[2022-07-03] MEDS ORDERED: DICYCLOMINE HCL 10 MG CAPSULE PO PRN (00:16)
[2022-07-03] MEDS ORDERED: ACETAMINOPHEN 325 MG TABLET (FP) PO PRN ×2 (00:16)
[2022-07-03] MEDS ORDERED: BENZOCAINE/MENTHOL (CHLORASEPTIC ) LOZENGE MM PRN (00:16)
[2022-07-03] MEDS ORDERED: BISMUTH SUBSALICYLATE 524 MG/30 ML PO PRN (00:16)
[2022-07-03] MEDS ORDERED: NALOXONE HCL (KLOXXADO) 8 MG SPRAY NS PRN (00:16)
[2022-07-03] MEDS ORDERED: ONDANSETRON *ODT* 4 MG TABLET SL PRN (00:16)
[2022-07-03] MEDS ORDERED: guaiFENesin 200 MG/10 ML 10 ML UNIT-DOSE CUPS PO PRN (00:16)
[2022-07-03] MEDS ORDERED: P-EPHED 60MG/TRIPROLIDI 2.5MG TABLET PO PRN (00:16)
[2022-07-03] MEDS ORDERED: POLYETHYLENE GLYCOL (HEALTHYLAX) 3350 17 GM PACKET PO PRN (00:16)
[2022-07-03] MEDS ORDERED: LOPERAMIDE HCL 2 MG CAPSULE PO PRN (00:16)
[2022-07-03] MEDS ORDERED: IBUPROFEN 600 MG TABLET (FP) PO PRN (00:16)
[2022-07-03] MEDS ORDERED: IBUPROFEN 400 MG TABLET (FP) PO PRN (00:16)
[2022-07-03] MEDS ORDERED: MELATONIN 5 MG TABLETS PO ONE (01:22)
[2022-07-03] MEDS: MELATONIN 5 MG TABLETS PO SCH ×2 (01:34→22:23)
[2022-07-03] MEDS: hydrOXYzine PAMOATE 25 MG CAPSULE (FP) PO PRN ×2 (05:24→13:49)
[2022-07-03] MEDS: chlordiazePOXIDE HCL 25 MG CAPSULE PO PRN ×3 (09:12→20:25)
[2022-07-03 10:43] LABS: PH,URINE 6.5 (5.0-8.0); URINE APPEARANCE CLEAR; URINE BILIRUBIN NEGATIVE (NEGATIVE); URINE COLOR YELLOW; URINE GLUCOSE (UA) NEGATIVE (NEGATIVE); URINE KETONE NEGATIVE (NEGATIVE); URINE LEUK ESTERASE NEGATIVE (NEGATIVE); URINE NITRITE NEGATIVE (NEGATIVE); URINE PROTEIN NEGATIVE (NEGATIVE); URINE UROBILINOGEN 0.2 mg/dL (0.2-1.0)
[2022-07-03 10:50] LABS: HEMATOCRIT 42.8 % (35.4-49); MCH 31.5 pg (25.7-33.7); MEAN CELL VOLUME 90.2 fl (80-96); MEAN PLT VOLUME 7.3 fl (7.5-11.1); PLATELET COUNT 297 10^3/uL (134-434); RBC 4.74 M/mm3 (4.00-5.60); RDW 12.7 % (11.9-15.9); WHITE BLOOD COUNT 3.8 K/mm3 (4.0-10.0)
[2022-07-03 11:03] LABS: ALBUMIN 3.9 g/dl (3.4-5.0); BLOOD UREA NITROGEN 7.4 mg/dL (7-18)
[2022-07-03 11:06] LABS: CREATININE 0.8 mg/dL (0.55-1.3)
[2022-07-03 11:07] LABS: BILIRUBIN,TOTAL 0.9 mg/dL (0.2-1); TOT PROT 7.2 g/dl (6.4-8.2)
[2022-07-03] MEDS: PRENATAL VITAMINS W/ FOLIC ACID TABLET (FP) PO SCH (11:38)
[2022-07-03] MEDS: chlordiazePOXIDE HCL 25 MG CAPSULE PO SCH ×3 (11:39→22:24)
[2022-07-03] MEDS: METHOCARBAMOL 500 MG TABLET PO PRN ×2 (13:49→22:24)
[2022-07-03] MEDS ORDERED: MELATONIN 5 MG TABLETS PO SCH (22:00)
[2022-07-03] MEDS: THIAMINE HCL 100 MG TABLET (FP) PO SCH (22:24)
[2022-07-04] MEDS: chlordiazePOXIDE HCL 25 MG CAPSULE PO SCH ×4 (05:13→22:06)
[2022-07-04] MEDS: PRENATAL VITAMINS W/ FOLIC ACID TABLET (FP) PO SCH (10:15)
[2022-07-04] MEDS: METHOCARBAMOL 500 MG TABLET PO PRN ×2 (10:16→22:05)
[2022-07-04] MEDS: hydrOXYzine PAMOATE 25 MG CAPSULE (FP) PO PRN ×3 (12:15→22:05)
[2022-07-04] MEDS: chlordiazePOXIDE HCL 25 MG CAPSULE PO PRN (12:15)
[2022-07-04] MEDS: MELATONIN 5 MG TABLETS PO SCH (22:05)
[2022-07-04] MEDS: THIAMINE HCL 100 MG TABLET (FP) PO SCH (22:05)
[2022-07-05] MEDS ORDERED: chlordiazePOXIDE HCL 25 MG CAPSULE PO SCH (05:00)
[2022-07-05 06:15] VITALS: BP 115/65; PULSE 53; RESP 18; TEMP 97.3
[2022-07-06] MEDS ORDERED: chlordiazePOXIDE HCL 10 MG CAPSULE PO PRN
[2022-07-06] MEDS ORDERED: chlordiazePOXIDE HCL 10 MG CAPSULE PO SCH (05:00)
[2022-07-07] MEDS ORDERED: chlordiazePOXIDE HCL 10 MG CAPSULE PO SCH (05:00)
[2022-07-08] MEDS ORDERED: chlordiazePOXIDE HCL 10 MG CAPSULE PO ONE (05:00)
== END 2022-07-05 08:35 | disposition left against medical advice (07) | DRG 770 ==
LOC: YASAS 23:36 → Y6N 07-03 00:28 → UNDOADMIN 07-03 00:28
PROVIDERS: ADMIT Allergy & Immunology; ATTEND Surgery
PROC: HZ2ZZZZ Detoxification Services for Substance Abuse Treatment (ICD-10-PCS; principal; 2022-07-03)
DX: F10.230 Alcohol dependence with withdrawal, uncomplicated (principal); F14.20 Cocaine dependence, uncomplicated; F12.20 Cannabis dependence, uncomplicated; F17.210 Nicotine dependence, cigarettes, uncomplicated; F10.220 Alcohol dependence with intoxication, uncomplicated; F19.280 Other psychoactive substance dependence with psychoactive substance-induced anxiety disorder; I10 Essential (primary) hypertension; M17.11 Unilateral primary osteoarthritis, right knee; Z85.47 Personal history of malignant neoplasm of testis; Z90.79 Acquired absence of other genital organ(s)
CPT/HCPCS: 36415; 80053; 81003; 85027; 86780; 87811; C9803-CS; Q0162; U0003; U0005

== ENCOUNTER 2022-08-22 08:43 | Inpatient (IN) | payer OTHER ==
[2022-08-22 09:17] VITALS: BMI 28.1
[2022-08-22] MEDS ORDERED: MAG HYDROX/AL HYDROX/SIMETH 30 ML UNIT-DOSE CUP PO PRN (09:31)
[2022-08-22] MEDS ORDERED: ACETAMINOPHEN 325 MG TABLET (FP) PO PRN ×2 (09:31)
[2022-08-22] MEDS ORDERED: ONDANSETRON *ODT* 4 MG TABLET SL PRN (09:31)
[2022-08-22] MEDS ORDERED: NALOXONE HCL (KLOXXADO) 8 MG SPRAY NS PRN (09:31)
[2022-08-22] MEDS ORDERED: BISMUTH SUBSALICYLATE 262 MG/15 ML BTL PO PRN (09:31)
[2022-08-22] MEDS ORDERED: LOPERAMIDE HCL 2 MG CAPSULE PO PRN (09:31)
[2022-08-22] MEDS ORDERED: POLYETHYLENE GLYCOL (HEALTHYLAX) 3350 17 GM PACKET PO PRN (09:31)
[2022-08-22] MEDS ORDERED: DICYCLOMINE HCL 10 MG CAPSULE PO PRN (09:31)
[2022-08-22] MEDS ORDERED: IBUPROFEN 400 MG TABLET (FP) PO PRN (09:31)
[2022-08-22] MEDS ORDERED: MAGNESIUM HYDROX 2400MG/30ML ORAL SUSPENSION 30 ML CUP PO PRN (09:31)
[2022-08-22] MEDS ORDERED: diazePAM 5 MG TABLET PO ONE (09:31)
[2022-08-22] MEDS ORDERED: IBUPROFEN 600 MG TABLET (FP) PO PRN (09:31)
[2022-08-22] MEDS ORDERED: BENZOCAINE/MENTHOL (CHLORASEPTIC ) LOZENGE MM PRN (09:31)
[2022-08-22] MEDS ORDERED: diazePAM 5 MG TABLET ONE (09:47)
[2022-08-22] MEDS: diazePAM 5 MG TABLET PO SCH ×3 (11:31→22:52)
[2022-08-22] MEDS: PRENATAL VITAMINS W/ FOLIC ACID TABLET (FP) PO SCH (11:31)
[2022-08-22] MEDS: hydrOXYzine PAMOATE 25 MG CAPSULE (FP) PO PRN (13:18)
[2022-08-22] MEDS: diazePAM 5 MG TABLET PO PRN (19:41)
[2022-08-22] MEDS: MELATONIN 5 MG TABLETS PO SCH (22:49)
[2022-08-22] MEDS: THIAMINE HCL 100 MG TABLET (FP) PO SCH (22:50)
[2022-08-23] MEDS: diazePAM 5 MG TABLET PO SCH ×4 (06:27→23:06)
[2022-08-23] MEDS: METHOCARBAMOL 500 MG TABLET PO PRN ×2 (10:16→23:06)
[2022-08-23] MEDS: PRENATAL VITAMINS W/ FOLIC ACID TABLET (FP) PO SCH (10:16)
[2022-08-23 10:27] LABS: HEMATOCRIT 43.5 % (35.4-49); HEMOGLOBIN 15.3 GM/dL (11.7-16.9); MCH 31.8 pg (25.7-33.7); MCHC 35.3 g/dl (32.0-35.9); MEAN PLT VOLUME 7.3 fl (7.5-11.1); PLATELET COUNT 266 10^3/uL (134-434); RBC 4.83 M/mm3 (4.00-5.60); RDW 13.2 % (11.9-15.9); WHITE BLOOD COUNT 7.1 K/mm3 (4.0-10.0)
[2022-08-23 11:24] LABS: ALBUMIN 3.5 g/dl (3.4-5.0); BLOOD UREA NITROGEN 14.9 mg/dL (7-18); CALCIUM 9.1 mg/dL (8.5-10.1)
[2022-08-23 11:27] LABS: CREATININE 0.9 mg/dL (0.55-1.3)
[2022-08-23 11:29] LABS: TOT PROT 6.9 g/dl (6.4-8.2)
[2022-08-23] MEDS: diazePAM 5 MG TABLET PO PRN ×2 (13:06→20:11)
[2022-08-23] MEDS: LACTULOSE 20 GM/30 ML UDC (FOR ORAL USE ONLY) PO SCH ×2 (14:03→23:05)
[2022-08-23] MEDS: hydrOXYzine PAMOATE 25 MG CAPSULE (FP) PO PRN (18:16)
[2022-08-23] MEDS: INSULIN SLIDING SCALE (NOVOLOG) 1 VIAL SQ SCH (18:46)
[2022-08-23] MEDS: MELATONIN 5 MG TABLETS PO SCH (23:06)
[2022-08-23] MEDS: THIAMINE HCL 100 MG TABLET (FP) PO SCH (23:06)
[2022-08-24] MEDS: diazePAM 5 MG TABLET PO SCH ×3 (05:55→22:40)
[2022-08-24] MEDS: LACTULOSE 20 GM/30 ML UDC (FOR ORAL USE ONLY) PO SCH ×3 (05:56→22:41)
[2022-08-24] MEDS: INSULIN SLIDING SCALE (NOVOLOG) 1 VIAL SQ SCH ×2 (06:54→17:25)
[2022-08-24] MEDS ORDERED: INSULIN SLIDING SCALE (NOVOLOG) 1 VIAL SQ SCH (07:00)
[2022-08-24] MEDS: diazePAM 5 MG TABLET PO PRN ×2 (09:27→17:26)
[2022-08-24] MEDS: PRENATAL VITAMINS W/ FOLIC ACID TABLET (FP) PO SCH (09:28)
[2022-08-24] MEDS: hydrOXYzine PAMOATE 25 MG CAPSULE (FP) PO PRN ×2 (09:28→22:52)
[2022-08-24] MEDS: METHOCARBAMOL 500 MG TABLET PO PRN ×2 (09:28→22:40)
[2022-08-24] MEDS: THIAMINE HCL 100 MG TABLET (FP) PO SCH (22:40)
[2022-08-24] MEDS: MELATONIN 5 MG TABLETS PO SCH (22:40)
[2022-08-25] MEDS: LACTULOSE 20 GM/30 ML UDC (FOR ORAL USE ONLY) PO SCH ×3 (06:07→13:43)
[2022-08-25] MEDS: diazePAM 5 MG TABLET PO SCH ×2 (06:07→18:02)
[2022-08-25] MEDS: INSULIN SLIDING SCALE (NOVOLOG) 1 VIAL SQ SCH (06:22)
[2022-08-25] MEDS: diazePAM 5 MG TABLET PO PRN (08:50)
[2022-08-25] MEDS: METHOCARBAMOL 500 MG TABLET PO PRN ×2 (08:50→22:34)
[2022-08-25] MEDS: hydrOXYzine PAMOATE 25 MG CAPSULE (FP) PO PRN ×2 (08:50→18:02)
[2022-08-25] MEDS: PRENATAL VITAMINS W/ FOLIC ACID TABLET (FP) PO SCH (09:00)
[2022-08-25] MEDS: THIAMINE HCL 100 MG TABLET (FP) PO SCH (22:34)
[2022-08-25] MEDS: MELATONIN 5 MG TABLETS PO SCH (22:34)
[2022-08-26] MEDS ORDERED: diazePAM 5 MG TABLET PO ONE (06:00)
[2022-08-26 07:00] VITALS: RESP 18
[2022-08-26 09:15] VITALS: BP 146/88; PULSE 72; TEMP 96.8
== END 2022-08-26 09:55 | disposition home or self-care (01) | DRG 774 ==
LOC: YASAS 08:43 → Y3N 09:47
PROVIDERS: ADMIT Allergy & Immunology; ATTEND Surgery
PROC: HZ2ZZZZ Detoxification Services for Substance Abuse Treatment (ICD-10-PCS; principal; 2022-08-22)
DX: F10.230 Alcohol dependence with withdrawal, uncomplicated (principal); F14.20 Cocaine dependence, uncomplicated; F12.20 Cannabis dependence, uncomplicated; F17.210 Nicotine dependence, cigarettes, uncomplicated; F41.9 Anxiety disorder, unspecified; U07.1 COVID-19; E72.20 Disorder of urea cycle metabolism, unspecified; I10 Essential (primary) hypertension; M17.11 Unilateral primary osteoarthritis, right knee; Z85.47 Personal history of malignant neoplasm of testis; Z90.79 Acquired absence of other genital organ(s); Z86.69 Personal history of other diseases of the nervous system and sense organs
CPT/HCPCS: 0241U-QW; 36415; 80053; 80307; 82140; 82962; 83036; 83735; 84100; 85025; 85027; 86780; 99282-25; C9803-CS; J1100; U0003; U0005

== ENCOUNTER 2022-10-10 04:23 | Inpatient (IN) | payer OTHER ==
[2022-10-10 04:54] VITALS: BMI 27.5
[2022-10-10] MEDS ORDERED: LOPERAMIDE HCL 2 MG CAPSULE PO PRN (06:05)
[2022-10-10] MEDS ORDERED: IBUPROFEN 400 MG TABLET (FP) PO PRN (06:05)
[2022-10-10] MEDS ORDERED: ONDANSETRON *ODT* 4 MG TABLET SL PRN (06:05)
[2022-10-10] MEDS ORDERED: ACETAMINOPHEN 325 MG TABLET (FP) PO PRN ×2 (06:05)
[2022-10-10] MEDS ORDERED: BISMUTH SUBSALICYLATE 524 MG/30 ML PO PRN (06:05)
[2022-10-10] MEDS ORDERED: MAG HYDROX/AL HYDROX/SIMETH 30 ML UNIT-DOSE CUP PO PRN (06:05)
[2022-10-10] MEDS ORDERED: POLYETHYLENE GLYCOL (HEALTHYLAX) 3350 17 GM PACKET PO PRN (06:05)
[2022-10-10] MEDS ORDERED: DICYCLOMINE HCL 10 MG CAPSULE PO PRN (06:05)
[2022-10-10] MEDS ORDERED: IBUPROFEN 600 MG TABLET (FP) PO PRN (06:05)
[2022-10-10] MEDS ORDERED: NALOXONE HCL (KLOXXADO) 8 MG SPRAY NS PRN (06:05)
[2022-10-10] MEDS ORDERED: MAGNESIUM HYDROX 2400MG/30ML ORAL SUSPENSION 30 ML CUP PO PRN (06:05)
[2022-10-10] MEDS ORDERED: BENZOCAINE/MENTHOL (CHLORASEPTIC ) LOZENGE MM PRN (06:05)
[2022-10-10] MEDS ORDERED: diazePAM 5 MG TABLET PO PRN (06:09)
[2022-10-10] MEDS: diazePAM 5 MG TABLET PO PRN ×3 (07:28→20:24)
[2022-10-10] MEDS: diazePAM 5 MG TABLET PO SCH ×3 (10:05→22:21)
[2022-10-10] MEDS: PRENATAL VITAMINS W/ FOLIC ACID TABLET (FP) PO SCH (10:05)
[2022-10-10] MEDS: METHOCARBAMOL 500 MG TABLET PO PRN ×2 (12:47→22:21)
[2022-10-10] MEDS: cloNIDine HCL 0.1 MG TABLET PO PRN (12:47)
[2022-10-10] MEDS: MELATONIN 5 MG TABLETS PO SCH (22:21)
[2022-10-10] MEDS: THIAMINE HCL 100 MG TABLET (FP) PO SCH (22:21)
[2022-10-11] MEDS: METHOCARBAMOL 500 MG TABLET PO PRN ×2 (05:45→12:38)
[2022-10-11] MEDS: diazePAM 5 MG TABLET PO SCH ×4 (05:46→22:30)
[2022-10-11] MEDS: PRENATAL VITAMINS W/ FOLIC ACID TABLET (FP) PO SCH (10:05)
[2022-10-11 11:28] LABS: HEMATOCRIT 39.6 % (35.4-49); HEMOGLOBIN 13.9 GM/dL (11.7-16.9); MCH 31.3 pg (25.7-33.7); MEAN CELL VOLUME 89.6 fl (80-96); MEAN PLT VOLUME 7.4 fl (7.5-11.1); PLATELET COUNT 277 10^3/uL (134-434); RBC 4.42 M/mm3 (4.00-5.60); RDW 13.7 % (11.9-15.9); WHITE BLOOD COUNT 5.6 K/mm3 (4.0-10.0)
[2022-10-11 11:47] LABS: ALBUMIN 3.8 g/dl (3.4-5.0)
[2022-10-11 11:50] LABS: CREATININE 0.8 mg/dL (0.55-1.3)
[2022-10-11 11:52] LABS: BILIRUBIN,TOTAL 0.8 mg/dL (0.2-1); TOT PROT 7.1 g/dl (6.4-8.2)
[2022-10-11] MEDS: cloNIDine HCL 0.1 MG TABLET PO PRN (12:39)
[2022-10-11 15:14] LABS: BLOOD UREA NITROGEN 12.8 mg/dL (7-18); CALCIUM 9.2 mg/dL (8.5-10.1)
[2022-10-11] MEDS: hydrOXYzine PAMOATE 25 MG CAPSULE (FP) PO PRN (19:27)
[2022-10-11] MEDS: MELATONIN 5 MG TABLETS PO SCH (21:05)
[2022-10-11] MEDS: diazePAM 5 MG TABLET PO PRN (21:05)
[2022-10-11] MEDS: THIAMINE HCL 100 MG TABLET (FP) PO SCH (21:05)
[2022-10-12] MEDS: diazePAM 5 MG TABLET PO SCH ×3 (05:34→22:37)
[2022-10-12] MEDS: METHOCARBAMOL 500 MG TABLET PO PRN ×2 (05:36→22:37)
[2022-10-12] MEDS: diazePAM 5 MG TABLET PO PRN ×2 (08:47→17:12)
[2022-10-12] MEDS: PRENATAL VITAMINS W/ FOLIC ACID TABLET (FP) PO SCH (10:12)
[2022-10-12] MEDS: hydrOXYzine PAMOATE 25 MG CAPSULE (FP) PO PRN (10:12)
[2022-10-12] MEDS: MELATONIN 5 MG TABLETS PO SCH (22:37)
[2022-10-12] MEDS: THIAMINE HCL 100 MG TABLET (FP) PO SCH (22:37)
[2022-10-13] MEDS: METHOCARBAMOL 500 MG TABLET PO PRN (05:35)
[2022-10-13] MEDS ORDERED: diazePAM 5 MG TABLET PO SCH (06:00)
[2022-10-13 06:12] VITALS: RESP 18; TEMP 97.3
[2022-10-13 09:39] VITALS: BP 129/77; PULSE 80
[2022-10-13] MEDS: PRENATAL VITAMINS W/ FOLIC ACID TABLET (FP) PO SCH (10:58)
[2022-10-14] MEDS ORDERED: diazePAM 5 MG TABLET PO ONE (06:00)
== END 2022-10-13 09:15 | disposition home or self-care (01) | DRG 774 ==
LOC: YASAS 04:23 → Y6N 06:27
PROVIDERS: ADMIT Allergy & Immunology; ATTEND Surgery
PROC: HZ2ZZZZ Detoxification Services for Substance Abuse Treatment (ICD-10-PCS; principal; 2022-10-10)
DX: F10.230 Alcohol dependence with withdrawal, uncomplicated (principal); F14.20 Cocaine dependence, uncomplicated; F13.20 Sedative, hypnotic or anxiolytic dependence, uncomplicated; F12.20 Cannabis dependence, uncomplicated; F41.9 Anxiety disorder, unspecified; F41.0 Panic disorder [episodic paroxysmal anxiety]; F90.9 Attention-deficit hyperactivity disorder, unspecified type; I10 Essential (primary) hypertension; M17.11 Unilateral primary osteoarthritis, right knee; Z86.69 Personal history of other diseases of the nervous system and sense organs; Z85.47 Personal history of malignant neoplasm of testis; Z90.79 Acquired absence of other genital organ(s); Z56.0 Unemployment, unspecified; Z59.00 Homelessness unspecified
CPT/HCPCS: 36415; 80053; 85027; 86780; 87811; C9803-CS; U0003; U0005

== ENCOUNTER 2023-01-12 14:47 | Inpatient (IN) | payer OTHER ==
[2023-01-12 16:31] VITALS: BMI 27.5
[2023-01-12] MEDS ORDERED: BENZOCAINE/MENTHOL (CHLORASEPTIC ) LOZENGE MM PRN (16:46)
[2023-01-12] MEDS ORDERED: LOPERAMIDE HCL 2 MG CAPSULE PO PRN (16:46)
[2023-01-12] MEDS ORDERED: IBUPROFEN 600 MG TABLET (FP) PO PRN (16:46)
[2023-01-12] MEDS ORDERED: DICYCLOMINE HCL 10 MG CAPSULE PO PRN (16:46)
[2023-01-12] MEDS ORDERED: IBUPROFEN 400 MG TABLET (FP) PO PRN (16:46)
[2023-01-12] MEDS ORDERED: MAG HYDROX/AL HYDROX/SIMETH 30 ML UNIT-DOSE CUP PO PRN (16:46)
[2023-01-12] MEDS ORDERED: MAGNESIUM HYDROX 2400MG/30ML ORAL SUSPENSION 30 ML CUP PO PRN (16:46)
[2023-01-12] MEDS ORDERED: ONDANSETRON *ODT* 4 MG TABLET SL PRN (16:46)
[2023-01-12] MEDS ORDERED: NALOXONE HCL 0.4 MG/ML VIAL IM PRN (16:46)
[2023-01-12] MEDS ORDERED: P-EPHED 60MG/TRIPROLIDI 2.5MG TABLET PO PRN (16:46)
[2023-01-12] MEDS ORDERED: POLYETHYLENE GLYCOL (HEALTHYLAX) 3350 17 GM PACKET PO PRN (16:46)
[2023-01-12] MEDS ORDERED: guaiFENesin 600 MG TABLET.ER (FP) PO PRN (16:46)
[2023-01-12] MEDS ORDERED: ACETAMINOPHEN 325 MG TABLET (FP) PO PRN (16:46)
[2023-01-12] MEDS ORDERED: BISMUTH SUBSALICYLATE 524 MG/30 ML PO PRN (16:46)
[2023-01-12] MEDS ORDERED: BENZONATATE 200 MG CAPSULE PO PRN (16:46)
[2023-01-12] MEDS ORDERED: NALOXONE HCL (KLOXXADO) 8 MG SPRAY NS PRN (16:46)
[2023-01-12] MEDS ORDERED: diazePAM 5 MG TABLET PO ONE (17:07)
[2023-01-12] MEDS: hydrOXYzine PAMOATE 25 MG CAPSULE (FP) PO PRN (18:05)
[2023-01-12] MEDS: METHOCARBAMOL 500 MG TABLET PO PRN (18:05)
[2023-01-12] MEDS: levETIRAcetam 500 MG TABLET (FP) PO SCH (21:13)
[2023-01-12] MEDS: THIAMINE HCL 100 MG TABLET (FP) PO SCH (21:13)
[2023-01-12] MEDS: MELATONIN 5 MG TABLETS PO PRN (21:13)
[2023-01-12] MEDS: diazePAM 5 MG TABLET PO PRN (21:15)
[2023-01-12] MEDS: diazePAM 5 MG TABLET PO SCH (22:25)
[2023-01-13] MEDS: diazePAM 5 MG TABLET PO SCH ×4 (05:15→22:01)
[2023-01-13] MEDS: METHOCARBAMOL 500 MG TABLET PO PRN ×3 (05:17→22:02)
[2023-01-13] MEDS: diazePAM 5 MG TABLET PO PRN ×3 (08:50→19:23)
[2023-01-13 09:59] LABS: POTASSIUM 4.3 mmol/L (3.5-5.1)
[2023-01-13 10:07] LABS: BLOOD UREA NITROGEN 11.4 mg/dL (7-18); CALCIUM 8.9 mg/dL (8.5-10.1)
[2023-01-13 10:08] LABS: ALBUMIN 3.9 g/dl (3.4-5.0)
[2023-01-13 10:11] LABS: CREATININE 0.8 mg/dL (0.55-1.3)
[2023-01-13 10:12] LABS: BILIRUBIN,TOTAL 1.2 mg/dL (0.2-1)
[2023-01-13] MEDS: PRENATAL VITAMINS W/ FOLIC ACID TABLET (FP) PO SCH (10:17)
[2023-01-13] MEDS: levETIRAcetam 500 MG TABLET (FP) PO SCH ×2 (10:17→22:01)
[2023-01-13 11:25] LABS: HEMATOCRIT 40.3 % (35.4-49); HEMOGLOBIN 14.1 GM/dL (11.7-16.9); MCH 31.9 pg (25.7-33.7); MCHC 35.1 g/dl (32.0-35.9); MEAN CELL VOLUME 90.8 fl (80-96); MEAN PLT VOLUME 6.4 fl (7.5-11.1); PLATELET COUNT 264 10^3/uL (134-434); RBC 4.43 M/mm3 (4.00-5.60); RDW 12.8 % (11.9-15.9); WHITE BLOOD COUNT 4.2 K/mm3 (4.0-10.0)
[2023-01-13] MEDS: hydrOXYzine PAMOATE 25 MG CAPSULE (FP) PO PRN (17:38)
[2023-01-13] MEDS: MELATONIN 5 MG TABLETS PO PRN (22:00)
[2023-01-13] MEDS: THIAMINE HCL 100 MG TABLET (FP) PO SCH (22:01)
[2023-01-14] MEDS: diazePAM 5 MG TABLET PO PRN ×3 (01:45→17:37)
[2023-01-14] MEDS: diazePAM 5 MG TABLET PO SCH ×3 (05:40→21:59)
[2023-01-14] MEDS: METHOCARBAMOL 500 MG TABLET PO PRN ×2 (05:41→22:00)
[2023-01-14] MEDS: levETIRAcetam 500 MG TABLET (FP) PO SCH ×2 (10:23→22:00)
[2023-01-14] MEDS: PRENATAL VITAMINS W/ FOLIC ACID TABLET (FP) PO SCH (10:23)
[2023-01-14 14:05] VITALS: TEMP 97.5
[2023-01-14] MEDS: hydrOXYzine PAMOATE 25 MG CAPSULE (FP) PO PRN (17:39)
[2023-01-14 17:45] VITALS: RESP 18
[2023-01-14] MEDS: MELATONIN 5 MG TABLETS PO PRN (22:00)
[2023-01-14] MEDS: THIAMINE HCL 100 MG TABLET (FP) PO SCH (22:00)
[2023-01-15] MEDS: METHOCARBAMOL 500 MG TABLET PO PRN (05:04)
[2023-01-15] MEDS ORDERED: diazePAM 5 MG TABLET PO SCH (06:00)
[2023-01-15 06:18] VITALS: BP 110/62; PULSE 70
[2023-01-15] MEDS: PRENATAL VITAMINS W/ FOLIC ACID TABLET (FP) PO SCH (10:40)
[2023-01-15] MEDS: levETIRAcetam 500 MG TABLET (FP) PO SCH (10:40)
[2023-01-16] MEDS ORDERED: diazePAM 5 MG TABLET PO ONE (06:00)
== END 2023-01-15 08:39 | disposition home or self-care (01) | DRG 774 ==
LOC: YASAS 14:47 → Y3N 17:14
PROVIDERS: ADMIT Allergy & Immunology; ATTEND Surgery
PROC: HZ2ZZZZ Detoxification Services for Substance Abuse Treatment (ICD-10-PCS; principal; 2023-01-12)
DX: F10.230 Alcohol dependence with withdrawal, uncomplicated (principal); F14.20 Cocaine dependence, uncomplicated; F12.20 Cannabis dependence, uncomplicated; M17.11 Unilateral primary osteoarthritis, right knee; Z85.47 Personal history of malignant neoplasm of testis; Z90.79 Acquired absence of other genital organ(s); Z87.891 Personal history of nicotine dependence
CPT/HCPCS: 36415; 80053; 85027; 86780; 87635